=== PATIENT | female | born 1945 | race Caucasian/White ===

== ENCOUNTER 2023-10-24 20:44 | Inpatient (IN) | payer MEDICARE, OTHER, SELFPAY ==
[2023-10-24] VITALS (7 sets, daily range): BP systolic 157–183; BP diastolic 52–90; BMI 41.4; BMI 39.3
[2023-10-24 16:58] LABS: % Basophils 0.3 % (0-2); % Eosinophils 0.5 % (0-6); % Immature Granulocytes 0.4 % (0-0.5); % Lymphocytes 23.1 % (20.5-51.1); % Monocytes 5.2 % (1.7-9.3); % Neutrophils 70.5 % (42.2-75.2); Absolute Lymphocytes 1.7 10^3/uL (1.2-3.4); Absolute Monocytes 0.4 10^3/uL (0.1-0.6); Absolute Neutrophils 5.2 10^3/uL (1.4-6.5); Hematocrit 34.7 % (37.0-47.0); Hemoglobin 11.2 g/dL (12.0-16.0); Mean Corp Hgb Conc. 32.3 g/dL (33.0-37.0); Mean Corpuscular Hgb 25.5 pg (27.0-31.0); Mean Corpuscular Volume 78.9 fL (81.0-99.0); Mean Platelet Volume 10.1 fL (7.4-10.4); Nucleated Red Blood Cells % 0 %; Platelet Count 269 10^3/uL (130-400); Red Cell Dist. Width 18.4 % (11.5-14.5); White Blood Cell Count 7.4 10^3/uL (4.8-10.8)
[2023-10-24 17:16] LABS: ALT (SGPT) 11 U/L (0-35); AST (SGOT) 24 U/L (14-36); Albumin 4.2 g/dl (3.5-5.0); Alkaline Phosphatase 79 U/L (38-126); Blood Urea Nitrogen 16 mg/dl (7-17); Calcium 9.5 mg/dl (8.4-10.2); Carbon Dioxide 28 mmol/L (22-30); Chloride 100 mmol/L (98-107); Glucose 111 mg/dl (70-99); Potassium 4.7 mmol/L (3.5-5.1); Sodium 135 mmol/L (135-145); Total Bilirubin 0.6 mg/dl (0.2-1.3); Total Protein 7.5 g/dl (6.3-8.2); eGFR > 60.00
--- NOTE | 2023-10-24 18:28 | ED.GENMED ---
History of Present Illness
General
Chief Complaint: Flank Pain
Source: patient
Exam Limitations: none
Time Seen by Provider: 10/24/23 18:28
Nursing documentation reviewed up to this point in time: agreed with
Travel History
Have you had any contact with someone who has COVID-19?: No
Do you have any symptoms of coronavirus? Fever > 100 degrees, chills, cough, shortness of breath, sore throat, loss of taste or smell, muscle aches, or headache?: No
History of Present Illness
History of Present Illness:
78-year-old female with history of asthma, hypothyroid, cholecystitis, appendectomy, lumbar spine surgery 05/29/23 presents with right flank pain rating around to the right lower quadrant. This started 3 days ago, it has waxed and waned. It is now
or 01/06. She found herself urinating frequently today, no burning with urination. She denies chest pain, shortness of breath. Pain has not been relieved with her typical pain medication for her back surgery of baclofen and tramadol.
Past History
Past History
ED Past Medical History: Asthma and Hypothyroidism
ED Past Surgical History: Appendectomy, Cholecystectomy and Orthopedic (Left shoulder replacement, fusion L2-L4 05/29/2023.)
Social History
Tobacco: Non-smoker
Personal:
Living: with family
Review of Systems
Review of Systems
Allergies reviewed?: Yes
All Other Systems: ROS reviewed and negative except as documented in HPI and ROS
Constitutional: Denies fever or chills
Respiratory: Denies trouble breathing
Cardiac: Denies chest pain
ABD/GI: Reports abdominal pain (Right flank pain radiates around to right lower abdomen); Denies nausea, vomiting, diarrhea or constipated
: Reports frequency and flank pain (Right); Denies dysuria, urgency or discharge
Musculoskeletal: Reports no symptoms
Skin: Reports no symptoms
Neurological: Reports no symptoms
Phy Exam
Physical Exam
Physical Exam:
GENERAL: No acute distress. A&Ox3.
CONSTITUTIONAL: Afebrile.
RESPIRATORY: Regular respirations, nonlabored, lungs clear.
CARDIOVASCULAR: Regular rate and rhythm, no murmurs, no rubs.
GI: Soft,tender RLQ, normal BS, R buttock/pelvic tenderness
MUSCULOSKELETAL: Moves with ease. Well perfused.
SKIN: Warm, dry, pink
PSYCH: Normal mood and affect. Well kept, interactive and appropriate
NEUROLOGIC: Awake, alert and oriented. No focal neurological deficits
Course
Orders/Labs/Results
Orders:
Orders
10/24/23 Dinner
Regular
At Your Request: Full Participation
10/24/23 16:52
CMP [Comprehensive Metabolic Panel] Urgent
Complete Blood Count/With Diff Urgent
10/24/23 18:23
Urinalysis Reflex To Culture Urgent
Date Specimen was Collected: 10/24/23
Time Specimen was Collected: 16:47
10/24/23 18:43
CT Abd/pel Without Iv Or Oral Urgent
Comment:
Reason For Exam: R flank to RLQ abd pain
10/24/23 20:28
Admit/Transfer Patient As Directed
Co-Sign Provider:
Level of Care: Inpatient admission
Assign to:: Medical/Surgical
Physician / Group: joon
Diagnosis: iliac bone lesion
Reason for Hospitalization: iliac bone lesion
Expected length of stay greater than two midnights?: Yes
ELOS- Estimated Length of Stay in days: 2
I certify the patient meets the requirements for IP care: Yes
10/24/23 20:29
Code Status As Directed
Resuscitation Status: Full Code
10/24/23 20:32
HYDROmorphone [Dilaudid] 0.5 mg IV Q4HPRN PRN
10/24/23 22:03
Blood Culture Q30M
JULIAN Source: Blood/Venous
Specimen Description:
Blood Culture Q30M
JULIAN Source: Blood/Venous
Specimen Description:
10/24/23 22:40
Albuterol [ProAIR HFA INHALER] 2 puff INH R Q4HPRN PRN
Baclofen [Lioresal] 5 mg PO TID PRN
Bisacodyl [Dulcolax] 10 mg PO DAILYPRN PRN
Calcium Carbonate Chewable [Tums] 1 tablet PO MEALS PRN
Gabapentin [Neurontin] 600 mg PO Q12 PRN
Tramadol HCl [Ultram] 50 mg PO Q6HPRN PRN
10/24/23 22:40
INFECTIOUS DISEASE CONSULT Routine
Consulting Provider: Lea Bonilla
Was physician already notified: Yes
Pelvis With Contrast MR [MR Pelvis With Contrast] Routine
Comment:
Reason For Exam: iliac bone lesion on ct
Recent pill cam endoscopy?: No
Activity As Directed
Activity Level: As Tolerated
Vital Signs As Directed
Frequency: Per unit guidelines
DX Deep Vein Thrombosis Video Routine
10/25/23 06:00
Complete Blood Count/With Diff IN AM
Comprehensive Metabolic Panel IN AM
Levothyroxine [Synthroid] 175 mcg PO DAILY @ 0600
10/25/23 08:00
Cholecalciferol (Vitamin D3) [VITAMIN D3 (cholecalciferol)] 50 mcg PO DAILY
Docusate Sodium [Colace] 100 mg PO BID
Fluticasone/Salmeterol 115/21 [Advair Hfa 115/21 Mcg Inhaler] 2 puff INH R BID
Heparin 5,000 units SC Q12
Polyethylene Glycol Powder [Miralax] 17 grams PO DAILY
Sennosides [Senokot] 17.2 mg PO DAILY
cycloSPORINE [Restasis 0.05% Ophthalmic Emulsion] 1 drops BOTH EYES BID
Abnormal Lab Results
10/24/23 10/24/23
16:52 18:23
Hgb 11.2 L g/dL
(12.0-16.0)
Hct 34.7 L %
(37.0-47.0)
MCV 78.9 L fL
(81.0-99.0)
MCH 25.5 L pg
(27.0-31.0)
MCHC 32.3 L g/dL
(33.0-37.0)
RDW 18.4 H %
(11.5-14.5)
Creatinine 0.5 L mg/dL
(0.6-1.0)
Glucose 111 H mg/dl
(70-99)
Urine Ketones 1+ A
(Negative)
10/24/23 16:52
10/24/23 16:52
Vital Signs
Initial and Last Documented VS:
Initial Vital Signs
Temp Pulse Resp BP Pulse Ox
98.0 F 70 18 178/90 96
10/24/23 16:41 10/24/23 16:41 10/24/23 16:41 10/24/23 16:41 10/24/23 16:41
Last Documented Vital Signs
Temp Pulse Resp BP Pulse Ox
98.0 F 70 19 162/73 97
10/24/23 23:14 10/24/23 16:41 10/24/23 23:14 10/24/23 22:00 10/24/23 23:14
MDM/Problems Addressed
Differential Diagnosis Includes:
kidney stone, UTI
MDM/Problems Addressed:
78-year-old female with history of asthma, hypothyroid, cholecystitis, appendectomy, lumbar spine surgery 05/29/23 presents with right flank pain rating around to the right lower quadrant. This started 3 days ago, it has waxed and waned. It is now
6 or 01/06. She found herself urinating frequently today, no burning with urination. She denies chest pain, shortness of breath. Pain has not been relieved with her typical pain medication for her back surgery of baclofen and tramadol.
CBC within normal limits for her
CMP normal
CT abdomen and pelvis w/o IV or p.o. contrast: Radiology report read: IMPRESSION: Possible chronic osteomyelitis or postprocedural change of the right posterior iliac bone as described above. Clinical correlation recommended. Limited evaluation for
an abscess without IV contrast. However, if present, small.,
Moderate right sided bowel containing ventral hernia. No evidence of incarceration or strangulation.
Moderate hiatal hernia.
Moderate fecal material throughout the colon.
Mild diverticulosis. No evidence of acute diverticulitis.
Consulted ID Dr. Bonilla who requests no antibiotics and MRI
Hospitalist notified of admission
*Critical Care Note
Total Time (30-74mins, 75-104mins- exclusive of procedures): Not Applicable
ED Attending Note
-
Portions of this chart may have been created with voice recognition software.� Occasional wrong word or��sound alike� substitutions may have occurred due to the inherent limitations of voice recognition software.
Discharge Plan
Departure
Patient Disposition: Admit
Date of Disposition: 10/24/23
Time of Disposition: 20:08
Presentation/result/management discussed w/ accepting MD/DO: Hospitalist
Condition: Fair
Discharge Problem:
Acute pain of right hip
Interventions
Interventions:
*Risk Screen - Suicide Last Done: 10/24/23 18:15
*General Assessment Last Done: 10/24/23 18:15
*Neglect/Abuse Screening Last Done: 10/24/23 18:15
ED- Fall Risk Assessment Last Done: 10/24/23 22:36
*ED COVID-19 Vaccine History Last Done: 10/24/23 18:15
*Nursing Disposition Last Done: 10/24/23 22:36
ZM-Nhcgbp-Kbokqgsonz Assessment Last Done: 10/24/23 18:15
ED-Female Genitourinary Assessment Last Done: 10/24/23 18:15
Discharge Date and Time
Discharge Date/Time: 10/24/23 22:37
[2023-10-24 18:39] LABS: Urine Albumin Negative (Neg - Trace); Urine Bilirubin Negative (Negative); Urine Character Clear (Clear); Urine Color Yellow; Urine Glucose Negative (Negative); Urine Ketone 1+ (Negative); Urine Leukocyte Negative (Negative); Urine Nitrite Negative (Negative); Urine Occult Blood Negative (Negative); Urine Urobilinogen 1+ (Neg - 1+)
--- NOTE | 2023-10-24 20:33 | HPS.HSE ---
Family Physician
-
Family Physician: Kameron Freeamn
Chief Complaint
-
hip pain
History of Present Illness
78-year-old female past medical history of lumbar spine surgery on 05/29/2023, hypertension, asthma, thyroid cancer status post thyroidectomy, hypothyroidism, hyperlipidemia, diabetes, anemia, hyponatremia, GERD, osteoporosis, vitamin D deficiency,
obesity, history of DVT, presenting with right flank pain radiating to the right lower quadrant of the abdomen starting 3 days ago. Pain waxes and wanes. Currently rated 6 out of 10. Patient urinating frequently today without burning. Denies
chest pain, shortness of breath. Patient does have some chills but denies fever. No vomiting or diarrhea.
Medical History
Past Medical History
Past Medical History: Reports Other (lumbar spine surgery on 05/29/2023, hypertension, asthma, thyroid cancer status post thyroidectomy, hypothyroidism, hyperlipidemia, diabetes, anemia, hyponatremia, GERD, osteoporosis, vitamin D deficiency,
obesity, history of DVT)
Past Surgical History: Reports Other (L2-4 laminectomy/PLIF, cataract, D&C, cholecystectomy, appendectomy)
Social History
Tobacco: Non-smoker
Alcohol: None
Drug: None
Family History
Family History: Not pertinent
Allergies / Home Medications
Allergies reflects when Allergies were last updated in [facility].
Home Medications with original date entered in [facility]
Allergy/Medication List:
Allergies
Allergy/AdvReac Type Severity Reaction Status Date / Time
adhesive tape Allergy Severe Rash Verified 06/04/23 07:06
chlorhexidine Allergy Severe Hives Verified 06/04/23 07:06
Penicillins Allergy Severe Rash Verified 06/04/23 07:06
vancomycin Allergy Severe Itching Verified 06/04/23 07:06
acetaminophen Allergy Intermediate Itching Verified 06/04/23 09:04
[From Darvocet-N]
clindamycin Allergy Intermediate Nausea / Verified 06/04/23 07:06
Vomiting
colchicine Allergy Intermediate Rash Verified 06/04/23 07:06
hydrocodone [From Vicodin] Allergy Intermediate Itching Verified 06/04/23 09:04
propoxyphene Allergy Intermediate Itching Verified 06/04/23 09:04
[From Darvocet-N]
Home Medications
albuterol sulfate 90 mcg/actuation aerosol inhaler 2 puff inhalation R Q4HPRN PRN SOB 30 days #6.7 grams 06/25/23
baclofen 5 mg tablet 5 mg PO TID PRN spasms 30 days #90 tabs 06/25/23
bisacodyl 5 mg tablet,delayed release 10 mg (2 x 5 mg) PO DAILYPRN PRN constipation 30 days #60 tabs 06/25/23
calcium carbonate (Antacid (calcium carbonate)) 200 mg PO MEALS PRN indigestion 30 days #60 tabs 06/25/23
cholecalciferol (vitamin D3) 50 mcg (2,000 unit) tablet 50 mcg PO DAILY Supplement 30 days #30 tabs 06/25/23
cyclosporine 0.05 % eye drops in a dropperette 1 drp BOTH EYES DAILY 30 days #60 ea 06/25/23
docusate sodium 100 mg capsule 100 mg PO BID 30 days #60 caps 06/25/23
fluticasone propionate 115 mcg-salmeterol 21 mcg/actuation HFA inhaler 2 puff inhalation R BID asthma 30 days #12 grams 06/25/23
gabapentin 300 mg capsule 600 mg (2 x 300 mg) PO Q12 PRN pain 30 days #120 caps 06/25/23
levothyroxine 175 mcg tablet 175 mcg PO DAILY@0700 #30 tabs 06/25/23
polyethylene glycol 3350 17 gram oral powder packet (HealthyLax) 17 g PO DAILY 30 days #100 ea 06/25/23
sennosides 8.6 mg tablet (Senna Lax) 17.2 mg (2 x 8.6 mg) PO DAILY 30 days #60 tabs 06/25/23
tramadol 50 mg tablet 50 mg PO Q6HPRN PRN moderate or severe pain 5 days #20 tabs 06/25/23
Review of Systems
-
History Source: Patient
A 12 point ROS was completed and negative except as noted: Yes
Constitutional: Reports No Symptoms
EENT: Reports No Symptoms
Respiratory: Reports No Symptoms
Cardiac: Reports No Symptoms
Abdomen/GI: Reports See HPI
: Reports No Symptoms
Musculoskeletal: Reports See HPI
Skin: Reports No Symptoms
Neurological: Reports No Symptoms
Endocrine: Reports No Symptoms
Hematologic/Lymphatic: Reports No Symptoms
Psych: Reports No Symptoms
Physical Exam
Vital Signs
Vital Signs
Temp Pulse Resp BP Pulse Ox
98.0 F 70 18 183/73 92
10/24/23 16:41 10/24/23 16:41 10/24/23 16:41 10/24/23 19:05 10/24/23 19:06
Physical Exam
General: Well Developed, Well Nourished and No Apparent Distress
HEENT: NormoCephalic, Moist mucous membranes and Atraumatic
Respiratory: Clear
Cardiac: S1/S2 and Regular Rhythm; No Murmur or Rub
GI: Soft, Non Tender, Non Distended and Normal Bowel Sounds; No Organomegaly
Rectal: Deferred by Provider
Musculoskeletal: No Clubbing, No Cyanosis, No Edema and Other (tenderness right hip, right abdomen )
Skin: No Rash
Neuro: Nonfocal/grossly intact
Laboratory Results
-
10/24/23 16:52
10/24/23 16:52
Laboratory Results
Total Bilirubin 0.6 mg/dl (0.2-1.3) 10/24/23 16:52
AST 24 U/L (14-36) 10/24/23 16:52
ALT 11 U/L (0-35) 10/24/23 16:52
Alkaline Phosphatase 79 U/L (38-126) 10/24/23 16:52
Data Reviewed
-
Lab Data: Labs Reviewed by me
Old Records: Reviewed
Impression/Plan
-
IMPRESSION:
PLAN:
# Severe right hip pain secondary to right iliac bone lesion possibly due to chronic osteomyelitis versus postprocedural change, possible small abscess
-Check pelvic MRI
-Check blood cultures
-ID recommended holding antibiotics
-Dilaudid for pain
-Continue tramadol, baclofen
-Urinalysis negative
Recent L2-L4 laminectomy spine surgery on 05/29/2023
-Continue tramadol, baclofen
Essential hypertension
Asthma
-Continue inhalers
Thyroid cancer status post thyroidectomy
Hypothyroidism
-Continue levothyroxine, gabapentin
Hyperlipidemia
Glucose intolerance
Chronic anemia
GERD
Osteoporosis
Vitamin D deficiency
-Continue vitamin D, calcium
Obesity
History of DVT
Full code
DVT prophylax�heparin
Regular diet
--- NOTE | 2023-10-24 22:45 | TRANSFER ---
Received pt from ED via stretcher. Pt ambulated to bed x1 with cane. AAOx3. Pt complained of 7/10 pain throughout right hip, radiating from right lower abd to right lower back, pain medication provided, see MAR. Assessed and oriented to room. Pt
verbalized understanding of call haddad. Call haddad within close reach. Will continue to monitor.
[2023-10-24] MEDS: ULTRAM 50 MG PO (23:21)
[2023-10-24] MEDS: NEURONTIN 600 MG PO (23:21)
[2023-10-25 00:59] VITALS: BP 156/79
[2023-10-25] MEDS: DILAUDID 0.5 MG IV ×3 (01:23→10:55)
[2023-10-25] MEDS: FLUSH (NSS) 2 FLUSH IV ×2 (01:23→06:32)
[2023-10-25] MEDS: SYNTHROID 175 MCG PO (06:10)
[2023-10-25] MEDS: ADVAIR HFA 115/21 MCG INHALER 2 PUFF INH ×2 (07:36→18:05)
[2023-10-25 07:52] VITALS: BP 147/71
[2023-10-25] MEDS: HEPARIN 5000 UNITS SC ×2 (08:31→20:12)
[2023-10-25] MEDS: VITAMIN D3 (cholecalciferol) 50 MCG PO (08:31)
[2023-10-25] MEDS: COLACE PO (08:32)
[2023-10-25] MEDS: MIRALAX PO (08:32)
[2023-10-25] MEDS: RESTASIS 0.05% OPHTHALMIC EMULSION 1 DROPS BOTH EYES ×2 (08:32→20:11)
[2023-10-25] MEDS: SENOKOT PO (08:32)
[2023-10-25] MEDS: NEURONTIN 600 MG PO ×2 (09:06→20:11)
[2023-10-25 09:23] LABS: % Basophils 0.5 % (0-2); % Immature Granulocytes 0.3 % (0-0.5); % Lymphocytes 34.1 % (20.5-51.1); % Monocytes 8.5 % (1.7-9.3); % Neutrophils 55.6 % (42.2-75.2); Absolute Eosinophils 0.1 10^3/uL (0-0.7); Absolute Lymphocytes 2.1 10^3/uL (1.2-3.4); Absolute Monocytes 0.5 10^3/uL (0.1-0.6); Absolute Neutrophils 3.4 10^3/uL (1.4-6.5); Hematocrit 32.9 % (37.0-47.0); Hemoglobin 10.3 g/dL (12.0-16.0); Mean Corp Hgb Conc. 31.3 g/dL (33.0-37.0); Mean Corpuscular Hgb 25.1 pg (27.0-31.0); Mean Platelet Volume 10.5 fL (7.4-10.4); Nucleated Red Blood Cells % 0 %; Platelet Count 249 10^3/uL (130-400); Red Blood Cell Count 4.11 10^6/uL (4.20-5.40); Red Cell Dist. Width 18.4 % (11.5-14.5); White Blood Cell Count 6.1 10^3/uL (4.8-10.8)
[2023-10-25 10:45] LABS: ALT (SGPT) < 10 U/L (0-35); AST (SGOT) 19 U/L (14-36); Albumin 3.7 g/dl (3.5-5.0); Alkaline Phosphatase 76 U/L (38-126); Blood Urea Nitrogen 16 mg/dl (7-17); Calcium 9.2 mg/dl (8.4-10.2); Carbon Dioxide 29 mmol/L (22-30); Chloride 102 mmol/L (98-107); Estimated Creatinine Clearance 79 ml/min; Glucose 104 mg/dl (70-99); Potassium 3.8 mmol/L (3.5-5.1); Sodium 137 mmol/L (135-145); Total Bilirubin 0.7 mg/dl (0.2-1.3); Total Protein 6.7 g/dl (6.3-8.2); eGFR > 60.00
--- NOTE | 2023-10-25 11:30 | W.PN.HOSP.TC ---
Today's Communication/Plan
-
Monitor vitals
see plan
Start oxycodone
PT evaluation
laxatives
Assessment / Plan
Assessment / Plan
General: Well Developed, Well Nourished and No Apparent Distress
HEENT: NormoCephalic, Moist mucous membranes and Atraumatic
Respiratory: Clear
Cardiac: S1/S2 and Regular Rhythm; No Murmur or Rub
GI: Soft, Non Tender, Non Distended and Normal Bowel Sounds; No Organomegaly
Rectal: Deferred by Provider
Musculoskeletal: No Clubbing, No Cyanosis, No Edema and Other (tenderness right hip, right abdomen )
Skin: No Rash
Neuro: Nonfocal/grossly intact
Severe right hip pain secondary to right iliac bone lesion possibly due to chronic osteomyelitis versus postprocedural change, possible small abscess
-MRI with pain 20 cm oval-shaped circumcised osseous defect in the posterior right iliac bone at the site of previous bone graft harvest most consistent with a intraosseous seroma surrounded by granulation tissue. Patient has already spoken with
her surgeon at [facility] and will be seeing them early next week
Pain management and PT evaluation
-Check blood cultures pending
-No infection, no need for antibiotic per ID
-Dilaudid for pain if not controlled with oxy
Start oxy
-Continue tramadol, baclofen
-Urinalysis negative
Constipation
laxatives
Recent L2-L4 laminectomy spine surgery on 05/29/2023
-Tramadol since on oxy, baclofen
Essential hypertension
Asthma
-Continue inhalers
Thyroid cancer status post thyroidectomy
Hypothyroidism
-Continue levothyroxine, gabapentin
Hyperlipidemia
Glucose intolerance
Chronic anemia
GERD
Osteoporosis
Vitamin D deficiency
-Continue vitamin D, calcium
Obesity
History of DVT
Full code
DVT prophylax�heparin
Anticipated Discharge: Within 24 hours
Subjective/Interval History
-
Date of Service: October 25, 2023
does have some pain
Objective Data
-
Labs:
Laboratory Results
10/25/23
08:55
WBC 6.1
Hgb 10.3 L
Hct 32.9 L
Plt Count 249
Sodium 137
Potassium 3.8
Chloride 102
Carbon Dioxide 29
BUN 16
Creatinine 0.5 L
Glucose 104 H
Calcium 9.2
Total Bilirubin 0.7
AST 19
ALT < 10
Alkaline Phosphatase 76
Vital Signs:
Vital Signs
Temp Pulse Resp BP Pulse Ox
98.3 F 64 16 147/71 94
10/25/23 07:52 10/25/23 07:52 10/25/23 07:52 10/25/23 07:52 10/25/23 07:52
I&O
10/24/23 10/25/23 10/26/23
06:59 06:59 06:59
Intake Total 120 / 120
Balance 120 / 120
--- NOTE | 2023-10-25 11:49 | CON.ID ---
Consultation
-
Date/Time Consultation Requested: October 24, 2023 2240
Date/Time Consultation Performed: October 25, 2023 1150
Requesting Provider: Dr. Pascale Contreras
Performing Provider: Dr. Lea Bonilla
Reason for Consultation: Hip pain
Chief Complaint / Past History
Chief Complaint
Right low back pain radiating to the right abdomen.
History of Present Illness
78-year-old female with diabetes mellitus, lumbar stenosis and recently underwent L2-L4 laminectomy with bone graft taking from the right iliac bone at [facility] on May 29, 2023. She was at [facility] from June 04 to June 25, 2023 and
currently doing home PT. However 3 to 4 days ago she developed right lower back pain initially it was dull then became sharp. The pain radiating to the right lower abdomen. Her physical therapist recommended she come to the ER to rule out
pyelonephritis. No fevers at home. No chills. Pain is positional especially when she is ambulating. She came to the ER yesterday. CAT scan shows lesion in the right iliac bone. I recommended holding antibiotic and to obtain an MRI of the
pelvis. Continues to have pain. No urinary symptoms.
Past History
Additional Past Medical History:
Diabetes mellitus
Hypothyroidism
Hypertension
asthma
Neuropathy
Anterior uveitis
DVT
Lumbar stenosis status post L2 to L4 laminectomy/PLIF at [facility] 05/29/2023
Class III obesity, BMI 39
Thyroid cancer s/p thyroidectomy
Cholecystectomy
Appendectomy
Allergy History:
adhesive tape Allergy (Severe, Verified 06/04/23 07:06)
Rash
chlorhexidine Allergy (Severe, Verified 06/04/23 07:06)
Hives
Penicillins Allergy (Severe, Verified 06/04/23 07:06)
Rash
vancomycin Allergy (Severe, Verified 06/04/23 07:06)
Itching
acetaminophen [From Darvocet-N] Allergy (Intermediate, Verified 06/04/23 09:04)
Itching
clindamycin Allergy (Intermediate, Verified 06/04/23 07:06)
Nausea / Vomiting
colchicine Allergy (Intermediate, Verified 06/04/23 07:06)
Rash
hydrocodone [From Vicodin] Allergy (Intermediate, Verified 06/04/23 09:04)
Itching
propoxyphene [From Darvocet-N] Allergy (Intermediate, Verified 06/04/23 09:04)
Itching
Medications Reviewed: Yes
Current Antibiotics:
None
Social History
Tobacco: Non-Smoker
Alcohol: None
Drug: None
Family History
Family History: Not Pertinent
Review of Systems
Review of Systems
General: Negative Fever, Chills or Change in Appetite
HEENT: Negative Stiff Neck, Sinus Problems, Headache or Pharyngitis
Respiratory: Negative Dyspnea or Cough
Gasteroenterology: Other (no diarrhea); Negative Nausea or Vomiting
Genital / Urological: Negative Dysuria or Hematuria
Endocrine: Negative Weakness
Skin / Hair / Nails: Negative Rash
Neurological: Headache; Negative Dizziness
All systems: All other systems were reviewed and were negative
Vital Signs
Temp Pulse Resp BP Pulse Ox
98.3 F 64 16 147/71 94
10/25/23 07:52 10/25/23 07:52 10/25/23 07:52 10/25/23 07:52 10/25/23 07:52
Physical Exam
Physical Exam
Constitutional: No Acute Distress, Comfortable and Obese
Cardiovascular: Regular Rate and S1/S2
Pulmonary: Clear
Gastrointestinal: Soft, Non Tender and Non Distended
Genito-Urinary: Negative CVA Tenderness
Extremities: Negative Edema
Neurological: AO x 3
Lab / Diagnostic Study Results
10/25/23 08:55
10/25/23 08:55
Abs Immat Gran (auto) 0.0 10^3/uL (0-0.05) 10/25/23 08:55
Absolute Neuts (auto) 3.4 10^3/uL (1.4-6.5) 10/25/23 08:55
Absolute Lymphs (auto) 2.1 10^3/uL (1.2-3.4) 10/25/23 08:55
Absolute Monos (auto) 0.5 10^3/uL (0.1-0.6) 10/25/23 08:55
Absolute Basos (auto) 0.0 10^3/uL (0-0.2) 10/25/23 08:55
Immature Gran % 0.3 % (0-0.5) 10/25/23 08:55
Neutrophils % 55.6 % (42.2-75.2) 10/25/23 08:55
Lymphocytes % 34.1 % (20.5-51.1) 10/25/23 08:55
Monocytes % 8.5 % (1.7-9.3) 10/25/23 08:55
Eosinophils % 1.0 % (0-6) 10/25/23 08:55
Basophils % 0.5 % (0-2) 10/25/23 08:55
Microbiology Results
Micro:
10/24/23 22:03 Blood Culture - Pending
Blood/Venous
10/24/23 22:03 Blood Culture - Pending
Blood/Venous
10/25/23 Pelvis MRI wo and w contrast: 3.0 cm oval-shaped circumscribed osseous defect in the posterior right iliac bone at the site of previous bone graft harvest most consistent with an intraosseous seroma surrounded by granulation tissue. Mild
soft tissue edema extending posteriorly to the skin surface. Recent laminectomies and circumferential spinal fusion at L3/L4 and L4/L5. Subacute to chronic superior endplate fracture of L5 with mild loss of vertebral body height.
Assessment / Plan
# Right hip/low back pain due to interosseus seroma with granulation tissue at previous bone graft harvest site (right ilium) for laminectomy.
No osteo or abscess by MRI.
No need for abx.
Should follow-up with her surgeon.
ID will sign off.
[2023-10-25] MEDS: ROXICODONE 5 MG PO ×2 (14:44→20:11)
[2023-10-25] MEDS: MIRALAX 17 GRAMS PO (14:51)
[2023-10-25 14:53] VITALS: BP 160/79
[2023-10-25 15:52] LABS: C-Reactive Protein < 5.00 mg/L (0.0-10.00)
[2023-10-25] MEDS: COLACE 100 MG PO (20:12)
[2023-10-25 23:13] VITALS: BP 146/75
[2023-10-26] MEDS: ROXICODONE 5 MG PO ×3 (01:33→11:01)
[2023-10-26] MEDS: SYNTHROID 175 MCG PO (06:18)
[2023-10-26] MEDS: RESTASIS 0.05% OPHTHALMIC EMULSION 1 DROPS BOTH EYES (07:40)
[2023-10-26] MEDS: NEURONTIN 600 MG PO (07:40)
[2023-10-26] MEDS: MIRALAX 17 GRAMS PO (07:40)
[2023-10-26] MEDS: SENOKOT 17.1999999999999993 MG PO (07:41)
[2023-10-26] MEDS: HEPARIN 5000 UNITS SC (07:41)
[2023-10-26] MEDS: COLACE 100 MG PO (07:41)
[2023-10-26] MEDS: VITAMIN D3 (cholecalciferol) 50 MCG PO (07:41)
[2023-10-26 07:46] VITALS: BP 140/72
[2023-10-26] MEDS: ADVAIR HFA 115/21 MCG INHALER 2 PUFF INH (08:05)
[2023-10-26 08:57] LABS: % Basophils 0.6 % (0-2); % Eosinophils 1.1 % (0-6); % Immature Granulocytes 0.1 % (0-0.5); % Lymphocytes 37.2 % (20.5-51.1); % Monocytes 8.4 % (1.7-9.3); % Neutrophils 52.6 % (42.2-75.2); Absolute Eosinophils 0.1 10^3/uL (0-0.7); Absolute Lymphocytes 2.6 10^3/uL (1.2-3.4); Absolute Monocytes 0.6 10^3/uL (0.1-0.6); Absolute Neutrophils 3.7 10^3/uL (1.4-6.5); Hematocrit 35.7 % (37.0-47.0); Hemoglobin 11.4 g/dL (12.0-16.0); Mean Corp Hgb Conc. 31.9 g/dL (33.0-37.0); Mean Corpuscular Hgb 25.4 pg (27.0-31.0); Mean Corpuscular Volume 79.5 fL (81.0-99.0); Mean Platelet Volume 10.5 fL (7.4-10.4); Nucleated Red Blood Cells % 0 %; Platelet Count 258 10^3/uL (130-400); Red Blood Cell Count 4.49 10^6/uL (4.20-5.40); Red Cell Dist. Width 18.6 % (11.5-14.5)
[2023-10-26 09:00] VITALS: BP 163/79; PULSE 65; O2SAT 94
[2023-10-26 09:05] LABS: ALT (SGPT) < 10 U/L (0-35); AST (SGOT) 19 U/L (14-36); Albumin 3.9 g/dl (3.5-5.0); Alkaline Phosphatase 81 U/L (38-126); Blood Urea Nitrogen 17 mg/dl (7-17); Calcium 9.7 mg/dl (8.4-10.2); Carbon Dioxide 27 mmol/L (22-30); Chloride 102 mmol/L (98-107); Estimated Creatinine Clearance 79 ml/min; Glucose 109 mg/dl (70-99); Potassium 4.2 mmol/L (3.5-5.1); Sodium 135 mmol/L (135-145); Total Bilirubin 0.6 mg/dl (0.2-1.3); Total Protein 7.2 g/dl (6.3-8.2); eGFR > 60.00
--- NOTE | 2023-10-26 10:54 | W.PN.HOSP.TC ---
Today's Communication/Plan
-
Monitor vital signs and see plan
Pain is better controlled with oxycodone, continue on discharge
Patient to follow-up with her surgeon early next week outpatient
Discharge today
Time of discharge 37 minutes
Assessment / Plan
Assessment / Plan
General: Well Developed, Well Nourished and No Apparent Distress
HEENT: NormoCephalic, Moist mucous membranes and Atraumatic
Respiratory: Clear
Cardiac: S1/S2 and Regular Rhythm; No Murmur or Rub
GI: Soft, Non Tender, Non Distended and Normal Bowel Sounds; No Organomegaly
Rectal: Deferred by Provider
Musculoskeletal: No Clubbing, No Cyanosis, No Edema and Other (tenderness right hip, right abdomen )
Skin: No Rash
Neuro: Nonfocal/grossly intact
Severe right hip pain secondary to intraosseous seroma surrounded by granulation tissue
-MRI with pain 20 cm oval-shaped circumcised osseous defect in the posterior right iliac bone at the site of previous bone graft harvest most consistent with a intraosseous seroma surrounded by granulation tissue. Patient has already spoken with
her surgeon at [facility] and will be seeing them early next week
Pain management; feeling better with oxy
-bcx NGTD
-No infection, no need for antibiotic per ID
-Dilaudid for pain if not controlled with oxy
Start oxy
-Continue tramadol, baclofen
-Urinalysis negative
Constipation
laxatives
Recent L2-L4 laminectomy spine surgery on 05/29/2023
-Tramadol on hold since on oxy, baclofen
Essential hypertension
Asthma
-Continue inhalers
Thyroid cancer status post thyroidectomy
Hypothyroidism
-Continue levothyroxine, gabapentin
Hyperlipidemia
Glucose intolerance
Chronic anemia
GERD
Osteoporosis
Vitamin D deficiency
-Continue vitamin D, calcium
Obesity
History of DVT
Full code
DVT prophylax�heparin
Anticipated Discharge: Today
Subjective/Interval History
-
Date of Service: October 26, 2023
pain is better
Objective Data
-
Labs:
Laboratory Results
10/26/23
08:27
WBC 7.0
Hgb 11.4 L
Hct 35.7 L
Plt Count 258
Sodium 135
Potassium 4.2
Chloride 102
Carbon Dioxide 27
BUN 17
Creatinine 0.5 L
Glucose 109 H
Calcium 9.7
Total Bilirubin 0.6
AST 19
ALT < 10
Alkaline Phosphatase 81
Vital Signs:
Vital Signs
Temp Pulse Resp BP Pulse Ox
98.0 F 58 18 140/72 95
10/26/23 07:46 10/26/23 08:09 10/26/23 08:09 10/26/23 07:46 10/26/23 08:09
I&O
10/25/23 10/26/23 10/27/23
06:59 06:59 06:59
Intake Total 120 / 120 1100 / 1100
Balance 120 / 120 1100 / 1100
--- NOTE | 2023-10-26 11:02 | W.DCSUMMARY ---
Discharge Summary
Discharge Data
Date of Admission: 10/24/23
Date of Discharge: 10/26/23
-
Pending Results: No
Hospital Course
78-year-old female with past medical history of recent laminectomy, essential hypertension, asthma, thyroid cancer status post thyroidectomy, hyperlipidemia, chronic anemia, GERD, osteoporosis, vitamin D deficiency, obesity, DVT came to the hospital
with severe right hip pain. Initially imaging was concerning with possible osteomyelitis or abscess. Infectious disease was also involved who recommended to get MRI hip and monitor off antibiotics. MRI was later done which showed osseous defect
in the posterior right iliac bone at the site of previous bone graft harvest most consistent with intraosseous seroma surrounded by granulation tissue. It was determined that patient's symptoms were likely related to her bone graft. Patient
instructed to follow-up with her surgeon at [facility] outpatient. For her pain she got better with oxycodone which was continued on discharge. Once her symptoms were improving she was then discharged home with instruction to follow-up with all her
physicians outpatient.
Discharge Plan
-
Patient Disposition: Home (Routine Discharge)
Discharge Diagnosis/Procedures: Right hip pain secondary to subsided osseous defect in the posterior right iliac bone at the site of previous bone graft harvest consistent with intraosseous seroma surrounded by granulation tissue
Constipation
Diet: As tolerated
Activity: As tolerated
Driving Restrictions: As prior to admission
Bathing Restrictions: None
Activity Restrictions/Additional Instructions:
Please follow-up with your surgeon outpatient
Referrals:
Kameron Freeman DO [Family Provider] - in less than 1 week
Prescriptions:
New
bisacodyl 5 mg Tablet,Delayed Release (Dr/Ec)
10 mg PO DAILYPRN PRN (Reason: constipation) Qty: 0 0RF
docusate sodium 100 mg Capsule
100 mg PO BID Qty: 0 0RF
baclofen 5 mg Tablet
5 mg PO TID PRN (Reason: spasms) Qty: 0 0RF
polyethylene glycol 3350 [HealthyLax] 17 gram Powder In Packet
17 g PO DAILY Qty: 0 0RF
sennosides [Senna Laxative] 8.6 mg Tablet
17.2 mg PO DAILY Qty: 0 0RF
oxycodone 5 mg Tablet
5 mg PO Q4HPRN PRN (Reason: moderate to severe pain) Qty: 20 0RF
Continued
cyclosporine 0.05 % [place]
1 drp OPHTHALMIC (EYE) Q12H
fluticasone propion-salmeterol 115-21 mcg/actuation Hfa Aerosol Inhaler
2 puff inhalation R BID 30 Days Qty: 12 0RF
gabapentin 300 mg Capsule
600 mg PO Q12 PRN (Reason: pain) 30 Days Qty: 120 0RF
albuterol sulfate 90 mcg/actuation Hfa Aerosol Inhaler
2 puff inhalation R Q4HPRN PRN (Reason: SOB) 30 Days Qty: 6.7 0RF
levothyroxine 175 mcg Tablet
175 mcg PO DAILY@0700 Qty: 30 0RF
cholecalciferol (vitamin D3) 50 mcg (2,000 unit) Tablet
50 mcg PO DAILY 30 Days Qty: 30 0RF
Discontinued
tramadol 50 mg Tablet
50 mg PO Q4 PRN (Reason: pain)
baclofen 10 mg Tablet
10 mg PO BID
Discharge Orders:
Discharge Patient (As Directed); Ordered 10/26/23
Ordered By: Vishnu Maxwell
Discharge Date and Time
Discharge Date/Time: 10/26/23 14:15
Print Language: CAP[place] VERDEAN
--- NOTE | 2023-10-26 11:45 | CM ---
Met with patient at bedside; initial assessment completed
Pharmacy verified: [facility], [facility]
Patient reports that she lives alone in a Split Level Home; 1 step to enter; 6-7 steps between floors; uses stair glide; upper level bathroom has walk-in shower with grab bar and chair; family lives nearby to assist as needed
PLOF: Patient reports she is independent with ADLs; ambulates with a cane; drives; has a cleaning service
SNF/Rehab/Home Health utilization history: [facility] prior to admission; [facility]; [facility] 12/2022; Home Health with [facility]
Transportation: Daughter will provide ride home\\
Plan: discharge to home today; will resume outpatient therapy
[2023-10-26 11:56] VITALS: BP 156/78
== END 2023-10-26 14:15 | disposition home or self-care (01) | DRG 566 ==
LOC: 3 WEST ACU 20:44
PROVIDERS: Emergency Medicine; ADMITTING PHYSICIAN Hospitalist; ATTENDING PHYSICIAN Internal Medicine; CONSULT PHYSICIAN Internal Medicine Infectious Disease; EMERGENCY PHYSICIAN Emergency Medicine; FAMILY PHYSICIAN Family Medicine
DX: M89.9 Disorder of bone, unspecified (principal); M25.551 Pain in right hip; L92.8 Other granulomatous disorders of the skin and subcutaneous tissue; J45.909 Unspecified asthma, uncomplicated; E89.0 Postprocedural hypothyroidism; I10 Essential (primary) hypertension; E78.5 Hyperlipidemia, unspecified; E11.36 Type 2 diabetes mellitus with diabetic cataract; E11.40 Type 2 diabetes mellitus with diabetic neuropathy, unspecified; K21.9 Gastro-esophageal reflux disease without esophagitis; M81.0 Age-related osteoporosis without current pathological fracture; E55.9 Vitamin D deficiency, unspecified; K59.00 Constipation, unspecified; E66.01 Morbid (severe) obesity due to excess calories; D64.9 Anemia, unspecified; Z96.612 Presence of left artificial shoulder joint; Z98.1 Arthrodesis status; Z86.718 Personal history of other venous thrombosis and embolism; Z68.39 Body mass index [BMI] 39.0-39.9, adult; Z88.6 Allergy status to analgesic agent; Z88.1 Allergy status to other antibiotic agents; Z88.5 Allergy status to narcotic agent; Z88.0 Allergy status to penicillin; Z88.8 Allergy status to other drugs, medicaments and biological substances; Z91.048 Other nonmedicinal substance allergy status; Z79.890 Hormone replacement therapy; Z85.850 Personal history of malignant neoplasm of thyroid
CPT/HCPCS: 72197; 74176; 80053; 81003; 85025; 86140; 87040; 94640; 97162; 99284; A9575